=== PATIENT | female | born 1995 | race Hispanic/Latino ===

== ENCOUNTER 2018-06-28 15:18 | Emergency (ER) | payer OTHER ==
[2018-06-28] MEDS ORDERED: ONDANSETRON 4 MG (ODT) TAB ONE (15:58)
[2018-06-28] MEDS ORDERED: SUCRALFATE 1 GM TABLET ONE (15:58)
--- NOTE | 2018-06-28 16:27 | ER ---
Nurse's Notes [facility] Name: Jane Dennis Age: 23 yrs Sex: Female : 1995 Arrival Date: 06/28/2018 Time: 15:21 Bed 24 Private MD: Diagnosis: Upper abdominal pain, unspecified;Vomiting, unspecified;Diarrhea, unspecified Presentation: 06/28 15:39 Presenting complaint: Patient states: Recently dx w/ H Pylori and placed on 2 ph medications, went out of town and left medications, now having N/V/D w/ dark stools and upper abdominal pain, reports that symptoms began Monday. Transition of care: patient was not received from another setting of care. Onset of symptoms was June 28, 2018. Risk Assessment: Do you want to hurt yourself or someone else? Patient reports no desire to harm self or others. Initial Sepsis Screen: Does the patient meet any 2 criteria? No. Patient's initial sepsis screen is negative. Does the patient have a suspected source of infection? No. Patient's initial sepsis screen is negative. Care prior to arrival: None. 15:39 Method Of Arrival: Ambulatory ph 15:39 Acuity: MICHAEL 3 ph Historical: - Allergies: 15:42 eggs; ph - PMHx: 15:42 GERD; H. Pylori; ph - PSHx: 15:42 neck sx; ph - Immunization history:: Adult Immunizations unknown. - Social history:: Smoking status: unknown. - Ebola Screening: : No symptoms or risks identified at this time. Screenin:00 Abuse screen: Denies threats or abuse. Denies injuries from another. Nutritional ph screening: No deficits noted. Tuberculosis screening: No symptoms or risk factors identified. Fall Risk None identified. Assessment: 15:57 Reassessment: Contacted [facility] pharmacy, pt currently taking Pylera twice a day and ph omeprazole 20 mg BID, pharmacist states that pt has medications ready for pick-up. 15:59 General: Appears in no apparent distress. comfortable, obese, well groomed, Behavior is ph calm, cooperative, appropriate for age, Denies fever. Pain: Complains of pain in epigastric area, right upper quadrant and left upper quadrant Quality of pain is described as burning. Neuro: Level of Consciousness is awake, alert, obeys commands, Oriented to person, place, time, situation, Reports dizziness, upon standing. Cardiovascular: Capillary refill < 3 seconds in bilateral fingers Patient's skin is warm and dry. Respiratory: Airway is patent Respiratory effort is even, unlabored, Respiratory pattern is regular, symmetrical, Denies shortness of breath. GI: Abdomen is non-distended, obese, Reports upper abdominal pain, diarrhea, nausea, vomiting, "dark stools". : No signs and/or symptoms were reported regarding the genitourinary system. Derm: Skin is intact, is healthy with good turgor, Skin is pink, warm \\T\\ dry. Musculoskeletal: Circulation, motion, and sensation intact. Range of motion: intact in all extremities. Vital Signs: 15:41 BP 119 / 75; Pulse 79; Resp 18; Temp 97.7; Pulse Ox 98% on R/A; Weight 106.59 kg; ph Height 5 ft. 5 in. (165.10 cm); Pain 7/10; 15:41 Body Mass Index 39.11 (106.59 kg, 165.10 cm) ph ED Course: 15:21 Patient arrived in ED. mr 15:33 Clara Kuhn, [facility] snw 15:33 Ranjit Duncan MD is Attending Physician. snw 15:38 Kamryn Solomon, RN is Primary Nurse. ph 15:41 Triage completed. ph 15:41 Arm band placed on Patient placed in an exam room, on a stretcher. ph 16:01 Patient has correct armband on for positive identification. Bed in low position. Call ph light in reach. Side rails up X 1. Pulse ox on. NIBP on. 16:01 No provider procedures requiring assistance completed. ph 16:23 Joe Valenzuela MD is Referral Physician. snw 16:53 Patient did not have IV access during this emergency room visit. ss Administered Medications: 15:50 Drug: Zofran 4 mg Route: PO; ph 16:56 Follow up: Response: No adverse reaction; Marked relief of symptoms ss 15:51 Drug: CarafATE 1 grams Route: PO; ph 16:56 Follow up: Response: No adverse reaction; Marked relief of symptoms ss Outcome: 16:26 Discharge ordered by . snw 16:53 Discharged to home ambulatory. ss 16:53 Condition: good 16:53 Discharge instructions given to patient, family, Instructed on discharge instructions, follow up and referral plans. medication usage, Demonstrated understanding of instructions, follow-up care, medications, Prescriptions given X 1. 16:56 Patient left the ED. Signatures: Clara Kuhn, HOSPICE MUSIC THERAPIST-C HOSPICE MUSIC THERAPIST-Csnw Rula AlanAnastasia victoria, RN RN ss Kamryn Solomon RN RN ph
--- NOTE | 2018-06-28 16:27 | EDPHYS ---
Physician Documentation [facility] Name: Jane Dennis Age: 23 yrs Sex: Female : 1995 Arrival Date: 06/28/2018 Time: 15:21 Bed 24 Private MD: ED Physician Ranjit Duncan HPI: 06/28 16:21 This 23 yrs old Female presents to ER via Ambulatory with complaints of snw Vomiting/Diarrhea, Abdominal Pain. 16:21 The patient presents to the emergency department with nausea, vomiting, diarrhea, snw abdominal pain, of the epigastric area, described as burning. Onset: The symptoms/episode began/occurred gradually. Possible causes: H pylori. Severity of symptoms: At their worst the symptoms were mild moderate in the emergency department the symptoms are unchanged. It is unknown whether or not the patient has had similar symptoms in the past. The patient has been recently seen by a physician: the patient's primary care provider, with similar presenting complaints, and apparently given a diagnosis of H pylori, given prevpack - encouraged pt to clam picker from pharmacy. Historical: - Allergies: 15:42 eggs; ph - PMHx: 15:42 GERD; H. Pylori; ph - PSHx: 15:42 neck sx; ph - Immunization history:: Adult Immunizations unknown. - Social history:: Smoking status: unknown. - Ebola Screening: : No symptoms or risks identified at this time. ROS: 16:20 Constitutional: Negative for fever, chills, and weight loss, Eyes: Negative for injury, snw pain, redness, and discharge, ENT: Negative for injury, pain, and discharge, Neck: Negative for injury, pain, and swelling, Cardiovascular: Negative for chest pain, palpitations, and edema, Respiratory: Negative for shortness of breath, cough, wheezing, and pleuritic chest pain, Abdomen/GI: Positive for abdominal pain, nausea, vomiting, diarrhea, denies constipation, given RX for recent dx of H. pylori ( pharmacy contacted [facility]) Rx ready for clam picker. Back: Negative for injury and pain, : Negative for injury, bleeding, discharge, and swelling, MS/Extremity: Negative for injury and deformity, Skin: Negative for injury, rash, and discoloration, Neuro: Negative for headache, weakness, numbness, tingling, and seizure. Exam: 16:20 Constitutional: This is a well developed, well nourished patient who is awake, alert, snw and in no acute distress. Head/Face: Normocephalic, atraumatic. Eyes: Pupils equal round and reactive to light, extra-ocular motions intact. Lids and lashes normal. Conjunctiva and sclera are non-icteric and not injected. Cornea within normal limits. Periorbital areas with no swelling, redness, or edema. ENT: Nares patent. No nasal discharge, no septal abnormalities noted. Tympanic membranes are normal and external auditory canals are clear. Oropharynx with no redness, swelling, or masses, exudates, or evidence of obstruction, uvula midline. Mucous membranes moist. Neck: Trachea midline, no thyromegaly or masses palpated, and no cervical lymphadenopathy. Supple, full range of motion without nuchal rigidity, or vertebral point tenderness. No Meningismus. Chest/axilla: Normal chest wall appearance and motion. Nontender with no deformity. No lesions are appreciated. Cardiovascular: Regular rate and rhythm with a normal S1 and S2. No gallops, murmurs, or rubs. Normal PMI, no JVD. No pulse deficits. Respiratory: Lungs have equal breath sounds bilaterally, clear to auscultation and percussion. No rales, rhonchi or wheezes noted. No increased work of breathing, no retractions or nasal flaring. Abdomen/GI: Soft, non-tender, with normal bowel sounds. No distension or tympany. No guarding or rebound. No evidence of tenderness throughout. Back: No spinal tenderness. No costovertebral tenderness. Full range of motion. Skin: Warm, dry with normal turgor. Normal color with no rashes, no lesions, and no evidence of cellulitis. MS/ Extremity: Pulses equal, no cyanosis. Neurovascular intact. Full, normal range of motion. Neuro: Awake and alert, GCS 15, oriented to person, place, time, and situation. Cranial nerves II-XII grossly intact. Motor strength 5/5 in all extremities. Sensory grossly intact. Cerebellar exam normal. Normal gait. Psych: Awake, alert, with orientation to person, place and time. Behavior, mood, and affect are within normal limits. Vital Signs: 15:41 BP 119 / 75; Pulse 79; Resp 18; Temp 97.7; Pulse Ox 98% on R/A; Weight 106.59 kg; ph Height 5 ft. 5 in. (165.10 cm); Pain 7/10; 15:41 Body Mass Index 39.11 (106.59 kg, 165.10 cm) ph MDM: 15:35 Patient medically screened. snw 16:42 Data reviewed: vital signs, nurses notes. Data interpreted: Pulse oximetry: on room air snw is 98 %. Interpretation: normal. Counseling: I had a detailed discussion with the patient and/or guardian regarding: the historical points, exam findings, and any diagnostic results supporting the discharge/admit diagnosis, the need for outpatient follow up, to return to the emergency department if symptoms worsen or persist or if there are any questions or concerns that arise at home. Special discussion: Based on the patient's Hx, exam, and Dx evaluation, there is no indication for emergent surgery or inpatient Tx. It is understood by the patient/guardian that if the Sx's persist or worsen they need to return immediately for re-evaluation. Based on the history and exam findings, there is no indication for further emergent testing or inpatient evaluation. I discussed with the patient/guardian the need to see the surgical product sales consultant for further evaluation of the symptoms. I discussed with the patient/guardian the need to see the primary care provider for further evaluation of the symptoms. Administered Medications: 15:50 Drug: Zofran 4 mg Route: PO; ph 16:56 Follow up: Response: No adverse reaction; Marked relief of symptoms ss 15:51 Drug: CarafATE 1 grams Route: PO; ph 16:56 Follow up: Response: No adverse reaction; Marked relief of symptoms ss Disposition: 06/28/18 16:26 Discharged to Home. Impression: Upper abdominal pain, unspecified, Vomiting, unspecified, Diarrhea, unspecified. - Condition is Stable. - Discharge Instructions: Abdominal Pain, Adult, Food Choices to Help Relieve Diarrhea, Adult, Diarrhea, Adult, Fat and Cholesterol Restricted Diet, Nausea and Vomiting, Adult. - Prescriptions for Zofran 4 mg Oral Tablet - take 1 tablet by ORAL route every 12 hours As needed; 20 tablet. - Work release form, Medication Reconciliation Form, Thank You Letter, Antibiotic Education, Prescription Opioid Use form. - Follow up: Joe Valenzuela MD; When: 5 - 6 days; Reason: Recheck today's complaints, Continuance of care. - Notes: Please clam picker Prev-michelle at your pharmacy and begin taking it. Addendum: 07/02/2018 07:03 Co-signature as Attending Physician, Ranjit Duncan MD. r n Signatures: Clara Kuhn, INSPECTOR PAWNSHOP DETAIL-C INSPECTOR PAWNSHOP DETAIL-Csnw Ranjit Duncan MD MD rn Anastasia Haider RN RN ss Kamryn Solomon RN RN ph Corrections: (The following items were deleted from the chart) 06/28 16:56 16:26 06/28/2018 16:26 Discharged to Home. Impression: Upper abdominal pain, ss unspecified; Vomiting, unspecified; Diarrhea, unspecified. Condition is Stable. Forms are Medication Reconciliation Form, Thank You Letter, Antibiotic Education, Prescription Opioid Use. Follow up: Joe Valenzuela; When: 5 - 6 days; Reason: Recheck today's complaints, Continuance of care. snw
== END 2018-06-28 16:56 | disposition home or self-care (01) ==
LOC: ER 15:18
DX: R10.9 Unspecified abdominal pain (principal); R19.7 Diarrhea, unspecified; Z91.012 Allergy to eggs
CPT/HCPCS: 99283

== ENCOUNTER 2018-07-06 05:22 | Emergency (ER) | payer OTHER ==
[2018-07-06 06:54] LABS: Absolute Lymphocytes (CBC) 1.7 K/uL (0.7-4.9); Absolute Monocytes 0.6 K/uL (0.1-1.3); Absolute Neutrophil 4.1 K/uL (1.8-8.0); Eosinophils % 2.4 % (0-4.4); Hematocrit 43.1 % (36.0-45.0); Lymphocytes % 26.2 % (15.3-44.8); Monocytes % 8.9 % (3.3-12.3); RBC Red Blood Cell Count 5.27 M/uL (3.86-4.86)
[2018-07-06 07:19] LABS: ALT/SGPT 24 U/L (12-78); AST/SGOT 20 U/L (15-37); Albumin 3.8 g/dL (3.4-5.0); Alkaline Phosphatase 79 U/L (45-117); BUN Blood Urea Nitrogen 8 mg/dL (7-18); Bicarbonate 25 mmol/L (21-32); Bilirubin Direct 0.3 mg/dL (0-0.2); Bilirubin Total 1.2 mg/dL (0.2-1.0); Glucose Level 77 mg/dL (74-106); Lipase 72 U/L (73-393); Potassium 3.7 mmol/L (3.5-5.1); Protein, Total 8.4 g/dL (6.4-8.2); Sodium Level 141 mmol/L (136-145)
--- NOTE | 2018-07-06 07:24 | EDPHYS ---
Physician Documentation [facility] Name: Jane Dennis Age: 23 yrs Sex: Female : 1995 Arrival Date: 07/06/2018 Time: 05:23 Bed 13 Private MD: ED Physician Eladio Moreno HPI: 07/06 06:30 This 23 yrs old Female presents to ER via Ambulatory with complaints of pm1 Vomiting, Abdominal Pain. 06:30 The patient presents to the emergency department with nausea, vomiting, diarrhea, pm1 abdominal pain, of the epigastric area, described as burning, and does not radiate. Onset: The symptoms/episode began/occurred 2 week(s) ago. Possible causes: h. pylori. The symptoms are aggravated by food , The symptoms are alleviated by nothing. Associated signs and symptoms: Pertinent negatives: fever, GI bleeding. Severity of symptoms: in the emergency department the symptoms are unchanged. The patient has been recently seen at the [facility] Emergency Department, for similar complaints encouraged to fill her prescription for h.plyori treatment. Patient reports no improvement in symptoms except for the ER medications carafate and zofran when she was here previously. Patient was not able to get her prescription for the h.pylori treatment filled due to the cost. 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 pylori; jb4 - PSHx: 05:39 None; jb4 - Immunization history:: Adult Immunizations up to date. - Social history:: Smoking status: Patient/guardian denies using tobacco, Patient/guardian denies using alcohol. - Ebola Screening: : No symptoms or risks identified at this time. ROS: 06:30 Constitutional: Negative for fever, chills, and weight loss, Eyes: Negative for injury, pm1 pain, redness, and discharge, ENT: Negative for injury, pain, and discharge, Neck: Negative for injury, pain, and swelling, Cardiovascular: Negative for chest pain, palpitations, and edema, Respiratory: Negative for shortness of breath, cough, wheezing, and pleuritic chest pain. 06:30 Back: Negative for injury and pain, : Negative for injury, bleeding, discharge, and swelling, MS/Extremity: Negative for injury and deformity, Skin: Negative for injury, rash, and discoloration, Neuro: Negative for headache, weakness, numbness, tingling, and seizure. 06:30 Abdomen/GI: Positive for abdominal pain, nausea, vomiting, and diarrhea, Negative for constipation. Exam: 06:30 Constitutional: This is a well developed, well nourished patient who is awake, alert, pm1 and in no acute distress. Head/Face: Normocephalic, atraumatic. Eyes: Pupils equal round and reactive to light, extra-ocular motions intact. Lids and lashes normal. Conjunctiva and sclera are non-icteric and not injected. Cornea within normal limits. Periorbital areas with no swelling, redness, or edema. ENT: Nares patent. No nasal discharge, no septal abnormalities noted. Tympanic membranes are normal and external auditory canals are clear. Oropharynx with no redness, swelling, or masses, exudates, or evidence of obstruction, uvula midline. Mucous membranes moist. Neck: Trachea midline, no thyromegaly or masses palpated, and no cervical lymphadenopathy. Supple, full range of motion without nuchal rigidity, or vertebral point tenderness. No Meningismus. Chest/axilla: Normal chest wall appearance and motion. Nontender with no deformity. No lesions are appreciated. Cardiovascular: Regular rate and rhythm with a normal S1 and S2. No gallops, murmurs, or rubs. Normal PMI, no JVD. No pulse deficits. Respiratory: Lungs have equal breath sounds bilaterally, clear to auscultation and percussion. No rales, rhonchi or wheezes noted. No increased work of breathing, no retractions or nasal flaring. Abdomen/GI: Soft, non-tender, with normal bowel sounds. No distension or tympany. No guarding or rebound. No evidence of tenderness throughout. Back: No spinal tenderness. No costovertebral tenderness. Full range of motion. Skin: Warm, dry with normal turgor. Normal color with no rashes, no lesions, and no evidence of cellulitis. MS/ Extremity: Pulses equal, no cyanosis. Neurovascular intact. Full, normal range of motion. 06:30 Neuro: Orientation: is normal, Motor: is normal, Gait: is steady, at a normal pace, without difficulty. Vital Signs: 05:39 BP 122 / 68; Pulse 86; Resp 16; Temp 98.2(O); Pulse Ox 100% on R/A; Weight 106.59 kg jb4 (R); Height 5 ft. 5 in. (165.10 cm); Pain 7/10; 06:45 BP 123 / 56; Pulse 73; Resp 16; Pulse Ox 100% on R/A; jb4 07:49 BP 118 / 62; Pulse 74; Resp 18; Temp 98.0; Pulse Ox 98% on R/A; ph 05:39 Body Mass Index 39.11 (106.59 kg, 165.10 cm) jb4 MDM: 06:08 Patient medically screened. pm1 07:22 Data reviewed: vital signs. Data interpreted: Pulse oximetry: on room air is 100 %. pm1 Interpretation: normal. Counseling: I had a detailed discussion with the patient and/or guardian regarding: the historical points, exam findings, and any diagnostic results supporting the discharge/admit diagnosis, the need for outpatient follow up, to return to the emergency department if symptoms worsen or persist or if there are any questions or concerns that arise at home. 07:22 ED course: Patient was seen by a primary care provider at the beginning of this month pm1 and diagnosed with h. pylori. She was prescribed Pylera and due to the cost of $1000 with her insurance she was not able to afford it. She came to the ER with the intention of finding alternative medication due to inability to afford Pylera. I will prescribe the patient a more affordable option using amoxicillin, lansoprazole, and clarithromycin. 07/06 06:22 Order name: Basic Metabolic Panel; Complete Time: 07:20 pm07/06 06:22 Order name: CBC with Diff; Complete Time: 07:00 pm07/06 06:22 Order name: Creatinine for Radiology; Complete Time: 07:15 pm1 07/06 06:22 Order name: Hepatic Function; Complete Time: 07:20 pm1 07/06 06:22 Order name: Lipase; Complete Time: 07:20 pm1 07/06 06:35 Order name: Urine Dipstick--Ancillary (enter results) eb 07/06 06:22 Order name: IV Saline Lock; Complete Time: 06:50 pm1 07/06 06:22 Order name: Labs collected and sent; Complete Time: 06:50 pm1 04 06:22 Order name: Urine Dipstick-Ancillary (obtain specimen); Complete Time: 06:50 pm1 07/06 06:22 Order name: Urine Test (obtain specimen); Complete Time: 06:50 pm1 07/06 06:35 Order name: Urine --Ancillary (enter results) eb Administered Medications: 07:37 Drug: Zofran 4 mg Route: IVP; Site: left antecubital; ph 07:47 Follow up: Response: No adverse reaction ph 07:37 Drug: CarafATE 1 grams Route: PO; ph 07:47 Follow up: Response: No adverse reaction ph Disposition: 07/07 07:09 Co-signature as Attending Physician, Eladio Moreno MD I agree with the assessment and tw4 plan of care. Disposition: 07/06/18 07:24 Discharged to Home. Impression: Unspecified abdominal pain, Vomiting, Diarrhea, unspecified. - Condition is Stable. - Discharge Instructions: Abdominal Pain, Adult, Diarrhea, Adult, Nausea and Vomiting, Adult, Helicobacter Pylori Infection. - Prescriptions for clarithromycin 500 mg Oral tablet - take 1 tablet by ORAL route every 12 hours for 14 days; 28 tablet. lansoprazole 30 mg Oral capsule,delayed release(DR/EC) - take 1 capsule by ORAL route every 12 hours for 14 days in combination with amoxicillin and clarithromycin; 28 capsule. Amoxicillin 500 mg Oral Capsule - take 2 capsule by ORAL route every 12 hours for 14 days; 56 tablet. Zofran 4 mg Oral Tablet - take 1 tablet by ORAL route every 12 hours As needed; 20 tablet. - Work release form, Medication Reconciliation Form, Thank You Letter, Antibiotic Education, Prescription Opioid Use form. - Follow up: Emergency Department; When: As needed; Reason: Worsening of condition. Follow up: Private Physician; When: 2 - 3 days; Reason: Recheck today's complaints, Continuance of care, Re-evaluation by your physician. - Problem is new. - Symptoms have improved. Signatures: Dispatcher [employer] EDMS Kamryn Solomon RN RN ph David Van, RN HEMATOLOGY RN HEMATOLOGY pm1 Arya Ramsey RN RN jb4 Eladio Moreno MD MD tw4 Corrections: (The following items were deleted from the chart) 07/06 07:24 07:24 07/06/2018 07:24 Discharged to Home. Impression: Unspecified abdominal pain. pm1 Condition is Stable. Discharge Instructions: Abdominal Pain, Adult. Prescriptions for clarithromycin 500 mg Oral tablet - take 1 tablet by ORAL route every 12 hours for 14 days; 28 tablet, lansoprazole 30 mg Oral capsule,delayed release(DR/EC) - take 1 capsule by ORAL route every 12 hours for 14 days in combination with amoxicillin and clarithromycin; 28 capsule, Amoxicillin 500 mg Oral Capsule - take 2 capsule by ORAL route every 12 hours for 14 days; 56 tablet, Zofran 4 mg Oral Tablet - take 1 tablet by ORAL route every 12 hours As needed; 20 tablet. and Forms are Medication Reconciliation Form, Thank You Letter, Antibiotic Education, Prescription Opioid Use. Follow up: Emergency Department; When: As needed; Reason: Worsening of condition. Follow up: Private Physician; When: 2 - 3 days; Reason: Recheck today's complaints, Continuance of care, Re-evaluation by your physician. Problem is new. Symptoms have improved. pm1 07:49 07:24 07/06/2018 07:24 Discharged to Home. Impression: Unspecified abdominal pain; ph Vomiting; Diarrhea, unspecified. Condition is Stable. Discharge Instructions: Abdominal Pain, Adult. Prescriptions for clarithromycin 500 mg Oral tablet - take 1 tablet by ORAL route every 12 hours for 14 days; 28 tablet, lansoprazole 30 mg Oral capsule,delayed release(DR/EC) - take 1 capsule by ORAL route every 12 hours for 14 days in combination with amoxicillin and clarithromycin; 28 capsule, Amoxicillin 500 mg Oral Capsule - take 2 capsule by ORAL route every 12 hours for 14 days; 56 tablet, Zofran 4 mg Oral Tablet - take 1 tablet by ORAL route every 12 hours As needed; 20 tablet. and Forms are Medication Reconciliation Form, Thank You Letter, Antibiotic Education, Prescription Opioid Use. Follow up: Emergency Department; When: As needed; Reason: Worsening of condition. Follow up: Private Physician; When: 2 - 3 days; Reason: Recheck today's complaints, Continuance of care, Re-evaluation by your physician. Problem is new. Symptoms have improved. pm1
--- NOTE | 2018-07-06 07:24 | ER ---
Nurse's Notes [facility] Name: Jane Dennis Age: 23 yrs Sex: Female : 1995 Arrival Date: 07/06/2018 Time: 05:23 Bed 13 Private MD: Diagnosis: Unspecified abdominal pain;Vomiting;Diarrhea, unspecified Presentation: 07/06 05:39 Method Of Arrival: Ambulatory jb4 05:39 Presenting complaint: Patient states: I have had vomiting since I was last here a week jb4 ago, and abdominal pain that started 2-3 days ago. Transition of care: patient was not received from another setting of care. Onset of symptoms was May 29, 2018. Risk Assessment: Do you want to hurt yourself or someone else? Patient reports no desire to harm self or others. Initial Sepsis Screen: Does the patient meet any 2 criteria? No. Patient's initial sepsis screen is negative. Does the patient have a suspected source of infection? No. Patient's initial sepsis screen is negative. Care prior to arrival: None. 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 pylori; jb4 - PSHx: 05:39 None; jb4 - Immunization history:: Adult Immunizations up to date. - Social history:: Smoking status: Patient/guardian denies using tobacco, Patient/guardian denies using alcohol. - Ebola Screening: : No symptoms or risks identified at this time. Screenin:39 Abuse screen: Denies threats or abuse. Nutritional screening: No deficits noted. jb4 Tuberculosis screening: No symptoms or risk factors identified. Fall Risk None identified. Assessment: 05:39 General: Appears in no apparent distress. comfortable, Behavior is calm, cooperative, jb4 appropriate for age. Pain: Complains of pain in right upper quadrant and left upper quadrant Pain does not radiate. Pain currently is 7 out of 10 on a pain scale. Pain began 2-3 days ago. Neuro: Level of Consciousness is awake, alert, obeys commands, Oriented to person, place, time, situation. Cardiovascular: Patient's skin is warm and dry. Respiratory: Airway is patent Respiratory effort is even, unlabored, Respiratory pattern is regular, symmetrical. GI: Abdomen is non-distended, obese, Reports upper abdominal pain, nausea, vomiting. : No signs and/or symptoms were reported regarding the genitourinary system. EENT: No signs and/or symptoms were reported regarding the EENT system. Derm: Skin is intact, Skin is pink, warm \T\ dry. Musculoskeletal: Circulation, motion, and sensation intact. 06:45 Reassessment: Patient appears in no apparent distress at this time. Patient and/or jb4 family updated on plan of care and expected duration. Pain level reassessed. Patient is alert, oriented x 3, equal unlabored respirations, skin warm/dry/pink. 07:13 Reassessment: Patient appears in no apparent distress at this time. Patient and/or ph family updated on plan of care and expected duration. Pain level reassessed. Patient is alert, oriented x 3, equal unlabored respirations, skin warm/dry/pink. Pt resting quietly, awaiting lab results, friend at bedside. 07:46 Reassessment: Patient appears in no apparent distress at this time. Patient and/or ph family updated on plan of care and expected duration. Pain level reassessed. Patient is alert, oriented x 3, equal unlabored respirations, skin warm/dry/pink. Pt d/c home w/ 4 prescriptions and instructed on their use. Vital Signs: 05:39 BP 122 / 68; Pulse 86; Resp 16; Temp 98.2(O); Pulse Ox 100% on R/A; Weight 106.59 kg 4 (R); Height 5 ft. 5 in. (165.10 cm); Pain 7/10; 06:45 BP 123 / 56; Pulse 73; Resp 16; Pulse Ox 100% on R/A; jb4 07:49 BP 118 / 62; Pulse 74; Resp 18; Temp 98.0; Pulse Ox 98% on R/A; ph 05:39 Body Mass Index 39.11 (106.59 kg, 165.10 cm) [facility] ED Course: 05:23 Patient arrived in ED. do 05:39 Arya Ramsey, RN is Primary Nurse. [facility] 05:39 Arm band placed on left wrist. jb4 05:39 Patient has correct armband on for positive identification. Bed in low position. Call jb4 light in reach. Side rails up X 1. Pulse ox on. NIBP on. 05:52 Triage completed. jb4 06:05 David Van NP is PHCP. pm1 06:05 Eladio Moreno MD is Attending Physician. pm1 06:36 Initial lab(s) drawn, by me, sent to lab. Inserted saline lock: 22 gauge in left jb4 antecubital area, using aseptic technique. Blood collected. 06:56 Report given to ISABELLA Harry. jb4 07:38 No provider procedures requiring assistance completed. IV discontinued, intact, ph bleeding controlled, No redness/swelling at site. Pressure dressing applied. Administered Medications: 07:37 Drug: Zofran 4 mg Route: IVP; Site: left antecubital; ph 07:47 Follow up: Response: No adverse reaction ph 07:37 Drug: CarafATE 1 grams Route: PO; ph 07:47 Follow up: Response: No adverse reaction ph Outcome: 07:24 Discharge ordered by MD. pm1 07:38 Discharged to home ambulatory, with significant other. ph 07:38 Condition: good 07:38 Discharge instructions given to patient, Instructed on discharge instructions, follow up and referral plans. medication usage, Demonstrated understanding of instructions, follow-up care, medications, Prescriptions given X 4. 07:49 Patient left the ED. ph Signatures: Kamryn Solomon, ISABELLA RN Sofya Zelaya Patrick, NP CORPORATE COMPLIANCE DIRECTOR pm1 Arya Ramsey RN RN jb4
[2018-07-06] MEDS ORDERED: SUCRALFATE 1 GM TABLET ONE (07:37)
[2018-07-06] MEDS ORDERED: ONDANSETRON 4 MG/2 ML VIAL ONE (07:37)
[2018-07-06 08:26] LABS: Urine Blood NEGATIVE (NEG); Urine Glucose NEGATIVE (NEG); Urine Protein NEGATIVE (NEG); Urine Specific Gravity 1.015 (1.005-1.030)
== END 2018-07-06 07:49 | disposition home or self-care (01) ==
LOC: ER 05:22
DX: R11.2 Nausea with vomiting, unspecified (principal); R19.7 Diarrhea, unspecified; Z91.012 Allergy to eggs
CPT/HCPCS: 36415; 80048; 80076; 81003; 81025; 83690; 85025; 96374; 99284; J2405

== ENCOUNTER 2019-11-03 20:01 | Emergency (ER) | payer OTHER, SELFPAY ==
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
== END 2019-11-03 22:49 | disposition home or self-care (01) ==
LOC: ER 20:01
DX: S29.012A Strain of muscle and tendon of back wall of thorax, initial encounter (principal); V49.40XA Driver injured in collision with unspecified motor vehicles in traffic accident, initial encounter; Z91.012 Allergy to eggs
CPT/HCPCS: 70450; 72125; 99282

== ENCOUNTER 2020-11-02 22:03 | Emergency (ER) | payer SELFPAY ==
--- OUTSIDE RECORDS SUMMARY | 2020-11-02 22:10 | XMS REPORT | Continuity of Care Document ---
:1995 Author Organization [facility] t Address [address] [place] [address] Dr. Cruz [address] [place] [id number] Care Team Providers Name Role Phone Unavailable Unavailable Unavailable Problems This patient has no known problems. Allergies, Adverse Reactions, Alerts This patient has no known allergies or adverse reactions. Medications This patient has no known medications. Procedures This patient has no known procedures. Results This patient has no known results.
[2020-11-03 02:28] LABS: Urine Blood Negative (Negative); Urine Glucose Negative (Negative); Urine Protein Negative (Negative); Urine pH 5.5 (5.0-7.0)
[2020-11-03 03:10] LABS: Urine Bacteria <20 /HPF (<20); Urine Mucus 1+ /HPF (NONE SEEN); Urine RBC <5 /HPF (NONE SEEN); Urine Urothelial Cells <5 /HPF (NONE SEEN)
--- NOTE | 2020-11-03 03:26 | ER ---
Nurse's Notes [facility] Name: Jane Dennis Age: 25 yrs Sex: Female : 1995 Arrival Date: 11/02/2020 Time: 22:53 Bed External Waiting Private MD: Diagnosis: Presentation: 11/02 23:32 Chief complaint: Patient states: she is having headache, cough, vomiting, abdominal bb pain x 4 days denies fever. Coronavirus screen: cough unrelated to allergies, headache, vomiting. Client presents with at least one sign or symptom that may indicate coronavirus-19. Standard/surgical mask placed on the client. Ebola Screen: No symptoms or risks identified at this time. Initial Sepsis Screen: Does the patient meet any 2 criteria? Yes Does the patient have a suspected source of infection? No. Patient's initial sepsis screen is negative. Risk Assessment: Do you want to hurt yourself or someone else? Patient reports no desire to harm self or others. Onset of symptoms was October 29, 2020. 23:32 Method Of Arrival: Ambulatory bb 23:32 Acuity: MICHAEL 3 bb Triage Assessment: 23:33 General: Appears in no apparent distress. Behavior is calm, cooperative. Pain: bb Complains of pain in abdomen Pain currently is 5 out of 10 on a pain scale. Neuro: Level of Consciousness is awake, alert, obeys commands, Oriented to person, place, time, situation. Cardiovascular: Capillary refill < 3 seconds Patient's skin is warm and dry. Respiratory: Respiratory effort is even, unlabored, Respiratory pattern is regular. GI: Abdomen is non-distended, Reports upper abdominal pain, vomiting. Derm: Skin is pink, warm \T\ dry. Musculoskeletal: Capillary refill < 3 seconds. 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 - Social history:: Smoking status: Patient denies any tobacco usage or history of. Vital Signs: 23:32 BP 109 / 75; Pulse 92; Resp 16 S; Temp 98.6(O); Pulse Ox 100% on R/A; Weight 106.59 kg bb (R); Height 5 ft. 5 in. (165.10 cm) (R); Pain /; 23:32 Body Mass Index 39.11 (106.59 kg, 165.10 cm) jack ED Course: 22:53 Patient arrived in ED. es 23:33 Triage completed. bb 23:33 Arm band placed on Patient placed in waiting room, Patient notified of wait time. Urine bb obtained. Administered Medications: No medications were administered Outcome: 11/03 03:25 Patient left the ED. em Signatures: Emily Ledesma Edgar RN RN em Alice Garcia RN RN jack Corrections: (The following items were deleted from the chart) 11/02 23:34 23:33 PMHx: GERD; bb bb :34 23:33 PMHx: h. pylori; bb jack
[2020-11-03 03:30] VITALS: BP 109/75; TEMP 98.6; O2SAT 100
== END 2020-11-03 03:25 | disposition left against medical advice (07) ==
LOC: ER 22:03
DX: Z53.21 Procedure and treatment not carried out due to patient leaving prior to being seen by health care provider (principal)
CPT/HCPCS: 81003; 81015; 99282